=== PATIENT | male | born 1990 | race Caucasian/White ===

== ENCOUNTER 2017-02-23 09:01 | Emergency (ER) | payer OTHER ==
[~2017-02-23] VITALS: Ht 177.8 cm; Wt 63.5 kg
[2017-02-23] MEDS ORDERED: ALKACAP4 PO (09:15)
[2017-02-23] MEDS ORDERED: MOTR200T44 PO (09:15)
--- NOTE | 2017-02-23 10:30 | REP ---
Chest x-ray: Two views. History: Fever and cough. Left-sided rhonchi. . Comparison study: No comparison study. . Findings: The lungs are well inflated and free of infiltrate. The pleural angles are sharp. The heart size is normal. Pulmonary vasculature is not increased. No significant bony abnormality is seen. Impression: Negative chest x-ray. Signed by Luiz Rosenthal MD 02/23/2017 10:21 A
[2017-02-23] MEDS ORDERED: ALBUTEROL 90 MCG/ACT 8GM HFA INHALER INH ONE (11:00)
[2017-02-23] MEDS ORDERED: MUCI600T34 PO (11:17)
[2017-02-23] MEDS ORDERED: TESS100C PO (11:17)
[2017-02-23] MEDS ORDERED: ZOFR4TAB3 PO (11:17)
[2017-02-23 11:20] VITALS: BP 119/67
== END 2017-02-23 11:31 | disposition home or self-care (01) ==
LOC: M ED 09:35
DX: J20.9 Acute bronchitis, unspecified (principal); J06.9 Acute upper respiratory infection, unspecified

== ENCOUNTER 2017-04-08 08:56 | Emergency (ER) | payer OTHER ==
[~2017-04-08] VITALS: Ht 177.8 cm; Wt 63.5 kg
[~2017-04-08 08:56] MED LIST: ALKACAP4 PO; MOTR200T44 PO; MUCI600T34 PO; TESS100C PO; ZOFR4TAB3 PO
[2017-04-08] MEDS ORDERED: ONDANSETRON 4 MG ORAL DISINTEGRATING TAB (S0181) PO ONE (09:15)
[2017-04-08] MEDS ORDERED: CITRSOL8 PO (09:19)
[2017-04-08 09:28] LABS: BASO % 0.4 % (0.0-1.0); EOS # 0.2 K/mm3 (0.0-0.50); LARGE UNSTAINED CELL # 0.1 K/mm3 (0.0-0.4); LARGE UNSTAINED CELL % 0.5 % (0.0-4.0); LYMPH # 0.8 K/mm3 (1.5-6.5); LYMPH % 6.7 % (24.0-44.0); MEAN CORPUSCULAR HEMOGLOBIN 31.5 pg (27.0-33.0); MEAN CORPUSCULAR HGB CONC 35.2 g/dl (32.0-36.5); MEAN CORPUSCULAR VOLUME 89.7 fl (80.0-96.0); MONO # 0.4 K/mm3 (0.0-0.8); MONO % 3.1 % (0.0-5.0); NEUTROPHILS # 10.9 K/mm3 (1.8-7.7); NEUTROPHILS % 87.4 % (36.0-66.0); PLATELET COUNT, AUTOMATED 160 k/mm3 (150-450); RED CELL DISTRIBUTION WIDTH 12.1 % (11.5-14.5); WHITE BLOOD COUNT 12.4 K/mm3 (4.0-10.0)
[2017-04-08 10:07] LABS: ALBUMIN 4.6 GM/DL (3.2-5.2); ALBUMIN/GLOBULIN RATIO 1.59 (1.00-1.93); ALKALINE PHOSPHATASE 92 U/L (45-117); ALT/SGPT 22 U/L (12-78); ANION GAP 6 MEQ/L (8-16); AST/SGOT 7 U/L (15-37); BILIRUBIN,DIRECT 0.2 MG/DL (0.0-0.2); BILIRUBIN,TOTAL 1.2 MG/DL (0.2-1.0); BLOOD UREA NITROGEN 17 MG/DL (7-18); CALCIUM LEVEL 9.3 MG/DL (8.5-10.1); CARBON DIOXIDE LEVEL 28 MEQ/L (21-32); CHLORIDE LEVEL 105 MEQ/L (98-107); CREATININE FOR GFR 1.15 MG/DL (0.70-1.30); GLOMERULAR FILTRATION RATE > 60.0 (>60); GLUCOSE, FASTING 119 MG/DL (70-105); SODIUM LEVEL 139 MEQ/L (136-145); TOTAL PROTEIN 7.5 GM/DL (6.4-8.2)
[2017-04-08] MEDS ORDERED: METOCLOPRAMIDE INJ 10MG/2ML VIAL (J2765) IM ONE (10:15)
--- NOTE | 2017-04-08 10:42 | REP ---
ABDOMEN, FLAT UPRIGHT, PA CHEST, FOUR VIEWS: HISTORY: Abdominal pain. A small amount of air is present in small and large intestine. Several air-fluid levels are present. There are no dilated loops of intestine. There is no pneumoperitoneum. The lungs are clear. IMPRESSION: Nonspecific bowel gas pattern. Signed by Valentin Dobson MD 04/08/2017 10:42 A
[2017-04-08] MEDS ORDERED: REGL10TA6 PO (11:52)
[2017-04-08] MEDS ORDERED: PROMETHAZINE INJ 25 MG/ML VIAL (J2550) IM ONE (12:00)
[2017-04-08 12:04] VITALS: BP 119/62
== END 2017-04-08 12:06 | disposition home or self-care (01) ==
LOC: M ED 09:30
DX: K59.00 Constipation, unspecified (principal); R11.0 Nausea

== ENCOUNTER → 2017-06-14 | Outpatient (CLI) | payer OTHER ==
[~2017-06-14] MED LIST changes: +CITRSOL8 PO; -MUCI600T34 PO; +MUCI600T37 PO; +REGL10TA6 PO
--- NOTE | 2017-06-14 19:19 | REP ---
ABDOMINAL SERIES: Supine and erect views of the abdomen and pelvis demonstrate no free air or obstruction. Phleboliths are seen in the pelvis. Visualized osseous structures are unremarkable. An accompanying view of the chest demonstrates no acute infiltrate. The cardiac mediastinal silhouette is unremarkable. IMPRESSION: Negative abdominal series. Signed by Bradford Simmons MD 06/15/2017 05:05 P
== END ==
LOC: M LRY 16:09
PROVIDERS: ATTEND Family Medicine
DX: K58.1 Irritable bowel syndrome with constipation (principal)

== ENCOUNTER → 2017-06-14 | Outpatient (REF) | payer OTHER ==
[2017-06-15 12:31] LABS: ADD MANUAL DIFFER YES; MEAN CORPUSCULAR HEMOGLOBIN 31.2 pg (27.0-33.0); MEAN CORPUSCULAR HGB CONC 34.3 g/dl (32.0-36.5); MEAN CORPUSCULAR VOLUME 90.8 fl (80.0-96.0); PLATELET COUNT, AUTOMATED 172 k/mm3 (150-450); RED CELL DISTRIBUTION WIDTH 12.2 % (11.5-14.5); WHITE BLOOD COUNT 5.3 K/mm3 (4.0-10.0)
[2017-06-15 12:47] LABS: FREE T4 1.21 NG/DL (0.76-1.46)
[2017-06-15 12:57] LABS: BANDS 1 % (< 11); EOSINOPHILS 5 % (0-5)
== END ==
LOC: M SFHCLERA 15:56
PROVIDERS: ATTEND Family Medicine
DX: K58.1 Irritable bowel syndrome with constipation (principal)